=== PATIENT | female | born 1950 | race Hispanic/Latino ===

== ENCOUNTER 2020-07-14 09:21 | Day surgery (SDC) | payer OTHER ==
[2020-07-14 09:50] LABS: MPV 8.7 fL (7.6-11.3)
--- OUTSIDE RECORDS SUMMARY | 2020-07-14 09:52 | XMS REPORT ---
:1950 Author Organization eClinicalWorks Care Team Providers Name Role Phone Chaka [facility] Provider Role Unavailable Allergies No Known Allergies Problems Problem Type Condition Code Onset Dates Condition Statu s Assessment Chronic obstructive pulmonary J44.9 Active disease, unspecified COPD type Problem Exposure to tobacco smoke Z77.22 Ac tive Problem Generalized anxiety disorder F41.1 Active Problem Mixed hyperlipidemia E78.2 Active Problem Essential hypertension I10 Activ e Problem Current moderate episode of major F32.1 Active depressive disorder without prior episode Problem Non-seasonal allergic rhinitis, J30.89 Active unspecified trigger Problem Chronic obstructive pulmonary J44.9 Active disease, unspecified COPD type Problem Hypothyroidism, unspecified type E03.9 Active Medications Medication Code System Code Instructions Start End Date Status Dos age Date ProAir A [facility] [id number] 108 (90 Base) Active 2 p uffs as MCG/ACT needed Inhalation every 6 hrs PRN COugh, Wheezing or shortness of breath Results No Known Results Summary Purpose eClinicalWorks Submission
--- OUTSIDE RECORDS SUMMARY | 2020-07-14 09:52 | XMS REPORT ---
:1950 Author Organization eClinicalWorks Care Team Providers Name Role Phone Chaka Zaid Provider Role Unavailable Allergies, Adverse Reactions, Alerts Substance Reaction Event Type N.K.D.A. Info Not Available Non Drug Allergy Problems Problem Type Condition Code Onset Dates Condition Statu s Assessment Current moderate episode of major F32.1 Active depressive disorder without prior episode Problem Exposure to tobacco smoke Z77.22 Ac tive Problem Generalized anxiety disorder F41.1 Active Problem Mixed hyperlipidemia E78.2 Active Problem Essential hypertension I10 Activ e Problem Current moderate episode of major F32.1 Active depressive disorder without prior episode Problem Non-seasonal allergic rhinitis, J30.89 Active unspecified trigger Problem Chronic obstructive pulmonary J44.9 Active disease, unspecified COPD type Problem Hypothyroidism, unspecified type E03.9 Active Assessment Prediabetes R73.03 Active Assessment Hypothyroidism, unspecified type E03.9 Active Assessment Mixed hyperlipidemia E78.2 Active Assessment Former tobacco use Z87.891 Active Assessment Essential hypertension I10 Activ e Assessment Chronic obstructive pulmonary J44.9 Active disease, unspecified COPD type Assessment Generalized anxiety disorder F41.1 Active Medications Medication Code Code Instructions Start End Status Dosage System Date Date Sertraline HCl [facility] [id number] 100 MG Oral Active T BISI 1 Once a day TABLET BY MOUTH EVERYDAY AT BEDTIME Hydrochlorothiazide ND 17565246582 12.5 MG Orally A ctive 1 tablet Once a day in the morning Fluticasone ND 70893539423 50 MCG/ACT Active 1 spr ay in Propionate Nasally Once a each day nostril ProAir HFA [facility] [id number] 108 (90 Base) Active 2 p uffs as MCG/ACT needed Inhalation every 6 hrs PRN COugh, Wheezing or shortness of breath Simvastatin ND 62855076151 40 MG Orally Active 1 t ablet Once a day in the evening Levothyroxine Sodium ND 89792916010 88 MCG Orally A ctive 1 tablet Once a day in the morning on an empty stomach Levothyroxine Sodium ND 07065935941 100 MCG Active TAKE 1 TABLET IN THE MORNING ON AN EMPTY STOMACH ONCE A DAY ORALLY 30 DAYS 30 Anoro Ellipta [facility] [id number] 62.5mcg/25 mcg Active 1 puff Orally Once a day BuPROPion HCl ER (XL) [facility] 81612800646 150 MG Orally Active 1 tablet Once a day in the evening Hydrochlorothiazide [facility] 54637838408 12.5 MG Active TAKE 1 TABLET BY MOUTH EVERY DAY IN THE MORNING Results No Known Results Summary Purpose eClinicalWorks Submission
--- OUTSIDE RECORDS SUMMARY | 2020-07-14 09:52 | XMS REPORT | Continuity of Care Document ---
:1950 Author Organization [facility] t Address [address] [place] [address] Care Team Providers Name Role Phone Unavailable Unavailable Unavailable Problems Condition Condition Condition Status Onset Resolution Last Treating Co mments Source Name Details Category Date Date Treatment Clinician Date Hypothyroi Hypothyroi Problem Active [facility] dism 05-19 da 00:00: Medical 00 Group Hyperchole Hyperchole Problem Active [facility] sterolemia sterolemia 05-19 da 00:00: Medical Group Hypertensi Hypertensi Problem Active [facility] ve ve 05-19 da disorder Disorder 00:00: Medica l 00 Group Seasonal Seasonal Problem Active [place] allergic Allergic 05-19 da rhinitis Rhinitis 00:00: Medica l 00 Group Current Current Problem Active [facility] episode of episode of Me moria major major l depressive depressive Ou tpati disorder disorder ent without without Clinics prior prior episode episode Exposure Exposure Problem [facility] tobacco to tobacco [facility] - smoke smoke [facility] Clinics Generalize Generalize Diagnosis Active [facility] d anxiety d anxiety [facility] - disorder disorder Mem[facility] a l Outpati ent Clinics Mixed Mixed Diagnosis Active [facility] hyperlipid hyperlipid [facility] - emia emia [facility] Essential Essential Diagnosis Active [facility] hypertensi hypertensi [facility] - on on [facility] ent Clinics Non-season Non-season Problem Active [facility] al al [facility] - allergic allergic Memori a rhinitis, rhinitis, l unspecifie unspecifie Ou tpati d trigger d trigger ent Clinics Chronic Chronic Diagnosis [facility] obstructiv obstructiv [facility] - e e Memoria pulmonary pulmonary l disease, disease, Outpat i unspecifie unspecifie en t d COPD d COPD Clinics type type Hypothyroi Hypothyroi Diagnosis Active [facility] dism, dism, [facility] - unspecifie unspecifie Me moria d type d type l [facility] ent [facility] Prediabete Prediabete Diagnosis Active [facility] Former Former Diagnosis Active [facility] tobacco tobacco [facility] - use use [facility] Allergies, Adverse Reactions, Alerts This patient has no known allergies or adverse reactions. Social History Smoking Status Start Date Stop Date Source Former Smoker [facility] Medications Ordered Filled Start Stop Current Ordering Indication Dosage Frequency Signature Comments Components Source Medication Medication Date Date Medication? Clinician (SIG) Name Name ProAir HFA ProAir HFA Yes Zaid [address] [facility] Null needed [facility] ent [facility] Sertraline Sertraline Yes Zaid TAKE [address] [facility] HCl HCl Null TABLET BY [facility] - MOUTH [facility] EVERYDAY l AT BEDTIME [facility] ent Clinics Hydrochloro Hydrochloro Yes Zaid TAKE [address] [facility] thiazide thiazide Null TABLET BY L ukes - MOUTH [facility] EVERY DAY l IN THE [facility] MORN[facility] ent Clinics Fluticasone Fluticasone Yes Zaid [address] [facility] Propionate Propionate Null each [facility] - nostril [facility] ent Clinics Simvastatin Simvastatin Yes Zaid [address] [facility] Null in the [facility] - evening [facility] ent Clinics Levothyroxi Levothyroxi Yes Zaid [address] [facility] ne Sodium ne Sodium Null in the [facility] - morning on Memoria an empty l stomach [facility] ent Clinics Levothyroxi Levothyroxi Yes Zaid TAKE [address] [facility] ne Sodium ne Sodium Null TABLET IN [facility] - THE [facility] MORNING ON l AN EMPTY [facility] STOMACH ent ONCE A DAY Clinics ORALLY 30 DAYS 30 Anoro Anoro Yes Zaid [address] [facility] Ellipta Ellipta Null [facility] - [facility] ent Clinics BuPROPion BuPROPion Yes Zaid [address] [facility] HCl ER (XL) HCl ER (XL) Null in the [facility] - evening [facility] ent Clinics Anoro Anoro No Anoro [place] Ellipta Ellipta Ellipta da 62.5 mcg-25 62.5 mcg-25 62.5 M edical mcg/actuati mcg/actuati mcg-25 Group on powder on powder mcg/actuat for for ion powder inhalation inhalation for inhalation Aspir-81 Aspir-81 No Aspir-81 [facility] fluticasone fluticasone No fluticason [place] propionate propionate e da 50 50 propionate Medical mcg/actuati mcg/actuati 50 G roup on nasal on nasal mcg/actuat spray,suspe spray,suspe ion nasal nsion [place] nsion [place] spray,susp 1 spray 1 spray ension every day every day [place] 1 by by spray intranasal intranasal every day route. route. by intranasal route. hydrochloro hydrochloro No hydrochlor [place] thiazide thiazide othiazide da 12.5 mg 12.5 mg 12.5 mg Medica l tablet tablet tablet Group levothyroxi levothyroxi No levothyrox [place] ne 112 mcg ne 112 mcg ine 112 da tablet Take tablet Take mcg tablet Medical 1 tablet 1 tablet Take 1 Group every day every day tablet by oral by oral every day route. route. by oral route. prednisone prednisone No prednisone [place] 10 mg 10 mg 10 mg da tablet tablet tablet Medical Group sertraline sertraline No 1 Q1D sertraline [place] 100 mg 100 mg 100 mg da tablet Take tablet Take tablet Medical 1 tablet 1 tablet Take 1 Group every day every day tablet by oral by oral every day route at route at by oral bedtime for bedtime for route at 30 days. 30 days. bedtime for 30 days. sertraline sertraline No sertraline [place] 50 mg 50 mg 50 mg da tablet Take tablet Take tablet Medical 1 tablet 1 tablet Take 1 Group every day every day tablet by oral by oral every day route for route for by oral 30 days. 30 days. route for 30 days. simvastatin simvastatin No simvastati [place] 40 mg 40 mg n 40 mg da tablet Take tablet Take tablet Medical 1 tablet 1 tablet Take 1 Group every day every day tablet by oral by oral every day route. route. by oral route. Vital Signs Vital Name Observation Time Observation Value Comments Source BP Diastolic 2019-07-01 00:00:00 78 mm[Hg] [facility] Height 2019-07-01 00:00:00 60 [in_i] [facility] BMI (Body Mass 2019-07-01 00:00:00 29.7 kg/m2 [facility] Index) Group BP Systolic 2019-07-01 00:00:00 125 mm[Hg] [facility] Body Weight 2019-07-01 00:00:00 2432 [oz_av] [facility] BP Diastolic 2019-06-03 00:00:00 84 mm[Hg] [facility] Height 2019-06-03 00:00:00 60 [in_i] [facility] BMI (Body Mass 2019-06-03 00:00:00 30.3 kg/m2 [facility] Medical Index) Group BP Systolic 2019-06-03 00:00:00 136 mm[Hg] [facility] Body Weight 2019-06-03 00:00:00 2486 [oz_av] [facility] BP Diastolic 2019-04-06 00:00:00 75 mm[Hg] [facility] Height 2019-04-06 00:00:00 58.2 [in_i] [facility] BMI (Body Mass 2019-04-06 00:00:00 32.2 kg/m2 [facility] Medical Index) Group BP Systolic 2019-04-06 00:00:00 114 mm[Hg] [facility] Body Weight 2019-04-06 00:00:00 2484 [oz_av] [facility] Procedures Procedure Date / Time Performed Performing Clinician [facility] US, abdominal wall 2019-06-03 00:00:00 [facility] Encounters Start End Encounter Admission Attending Care Care Encounter Source Date/Time Date/Time Type Type Clinicians Facility Department ID 2020-07-06 2020-07-06 [facility] [id number] [facility] 09:45:00 09:45:00 [facility] l Medicine Outpati ent Clinics 2020-05-16 2020-05-16 [facility] [id number] [facility] 09:44:00 09:44:00 [facility] l Medicine Outpati ent Clinics 2020-04-10 2020-04-10 [facility] [id number] [facility] 11[facility]54:00 11:54:00 [facility] Family [facility] l Medicine Outpati ent Clinics 2020-04-05 2020-04-05 [facility] [id number] 09:00:00 09:00:00 [facility] [employer] [facility] [facility] Medicine Outpati ent Clinics 2020-04-05 2020-04-05 [facility] [id number] 09:00:00 09:00:00 t [employer] - [employer] [facility] Medicine Outpati ent Clinics 2020-03-16 2020-03-16 [facility] [id number] 16:18:00 16:18:00 t [employer] [facility] [employer] [facility] Medicine Outpati ent Clinics 2020-03-08 2020-03-08 [facility] [id number] [facility] 13:27:00 13:27:00 t [employer] - [employer] [facility] Medicine Outpati ent Clinics 2020-03-06 2020-03-06 [facility] [id number] [facility] 08:15:00 08:15:00 t [employer] [facility] Medicine Outpati ent Clinics 2020-01-12 2020-01-12 [facility] [id number] 15:30:00 15:30:00 t [employer] [facility] Medicine Outpati ent Clinics 2019-07-01 2019-07-01 [place] - [id number] [place] 00:00:00 00:00:00 Madelyn Marie MD: [address], [facility] [address], [place] [address] , Ph. 2019-06-03 2019-06-03 [facility] [place] - [id number] [place] 00:00:00 00:00:00 Madelyn Marie MD: [address], [facility] [address], [place] [address] , Ph. 2019-04-06 2019-04-06 [place] - [id number] [place] 00:00:00 00:00:00 Mazin Greenwood, Medical Medical MD: [address], Family [address], [place] [address] , Ph. Results Test Description Test Time Test Comments Results Result Comments Source Microalbumin [Mass/volume] in Urine 2019-04-07 05:57:00 Test Item Value Reference Range Interpretation Comme nts microalbumin random (test code = microalbumin random) 15.9 mg/L 0-20 [facility] Auto Differential panel - [id number] 05:57:00 Test Item Value Reference Range Interpretation Comments white blood count (test code = 6.1 K/uL 4.0-11.5 white blood count) red blood count (test code = red 4.73 M/uL 3.80-5.20 blood count) Hemoglobin [Mass/volume] in Blood 15.6 g/dL 10.5-15.7 (test code = 718-7) hematocrit (test code = hematocrit) 45.6 % 34.0-50.0 Erythrocyte mean corpuscular volume 96.4 fL 78-98 [Entitic volume] (test code = 19771-3) Erythrocyte mean corpuscular 33.1 pg 26.2-33.4 hemoglobin [Entitic mass] (test code = 93808-7) mean corpuscular HGB conc (test 34.3 g/dL 31.5-36.2 code = mean corpuscular HGB conc) red cell distribution width (test 11.0 % 11.5-15.5 L code = red cell distribution width) Platelets [#/volume] in Blood (test 198 K/uL 137-338 code = 01548-7) Platelet mean volume [Entitic 7.3 fL 8.4-11.8 L volume] in Blood (test code = 84338-3) Neutrophils.band form/100 55.2 % 44.4-80.1 leukocytes in Blood (test code = 02798-9) Lymphocytes/100 leukocytes in Body 34.5 % 10.0-50.0 fluid (test code = 27101-9) Monocytes/100 leukocytes in Blood 6.1 % 3.6-12.04 by Automated count (test code = 5905-5) Eosinophils/100 leukocytes in Blood 3.1 % 0.0-5.41 by Automated count (test code = 713-8) Basophils/100 leukocytes in 1.1 % 0.0-0.79 H Unspecified specimen (test code = 46943-9) [facility], [id number] 05:57:00 NeutrophilsBandLymphocyteMonocytePlatelet EstimateDifferential comment-P [facility] CenterHemoglobin A1c [Mass/volume] in [id number] 05:57:00 Test Item Value Reference Range Interpretation Comments Hemoglobin A1c in Blood (test code = 5.8 % 4.0-6.0 61532-2) [facility] 2000 panel - Serum or Plasma 2019-04-07 05:57:00 Test Item Value Reference Range Interpretation Comments glucose (test code = glucose) 122 mg/dL 82-115 H Urea nitrogen [Mass/volume] in 15 mg/dL 8-23 Serum or Plasma (test code = 3094-0) Osmolality of Serum or Plasma 283 280-300 (test code = 2692-2) creatinine (test code = 0.9 mg/dL 0.50-0.90 creatinine) glomerular filtration rate (test >60.00 code = glomerular filtration rate) Urea nitrogen/Creatinine [Mass 16.7 12-20 Ratio] in Serum or Plasma (test code = 3097-3) sodium level (test code = sodium 141 mmol/L 135-145 level) Potassium [Moles/volume] in Body 4.1 mmol/L 3.5-5.2 fluid (test code = 2821-7) chloride level (test code = 102 mmol/L 98-108 chloride level) CO2 (test code = CO2) 27 mmol/L 21-32 anion gap (test code = anion gap) 16.1 mEq/L 12-20 calcium level (test code = calcium 9.6 mg/dL 8.8-10.2 level) total protein (test code = total 7.6 g/dL 6.6-8.7 protein) albumin (test code = albumin) 4.2 g/dL 3.5-5.2 globulin (test code = globulin) 3.4 gm/dL A/G ratio (test code = A/G ratio) 1.2 >1.0 bilirubin,total (test code = 0.5 mg/dL 0.0-1.2 bilirubin,total) AST/SGOT (test code = AST/SGOT) 27 U/L 15-32 Alanine aminotransferase 18 U/L 0-33 [Enzymatic activity/volume] in Serum or Plasma (test code = 1742-6) Alkaline phosphatase [Enzymatic 105 U/L 35-105 activity/volume] in Serum or Plasma (test code = 6768-6) [facility] Center[facility] 1996 panel - Serum or [id number] 05:57:00 Test Item Value Reference Range Interpretation Comments cholesterol level (test code = 139 mg/dL 150-200 L cholesterol level) triglycerides level (test code = 96 mg/dL <150 triglycerides level) HDL cholesterol (test code = HDL 40 mg/dL >65 L cholesterol) LDL cholesterol direct (test code = 87 mg/dL <100 LDL cholesterol direct) cholesterol risk ratio (test code = 3.475 cholesterol risk ratio) [facility] CenterThyrotropin [Units/volume] in Serum or [id number] 05:57:00 Test Item Value Reference Range Interpretation Comments Thyrotropin [Units/volume] in 0.80 uIU/mL 0.36-3.74 Serum or Plasma (test code = 3016-3) [facility]
--- OUTSIDE RECORDS SUMMARY | 2020-07-14 09:53 | XMS REPORT ---
:1950 Author Organization eClinicalWorks Care Team Providers Name Role Phone [facility] Provider Role Unavailable Allergies No Known Allergies [...] Date Status Dos age Date ProAir A [facility] [id number] 108 (90 Base) Active 2 p uffs as MCG/ACT needed Inhalation every 6 hrs PRN COugh, Wheezing or shortness of breath Results No Known Results Summary Purpose eClinicalWorks Submission
--- OUTSIDE RECORDS SUMMARY | 2020-07-14 09:53 | XMS REPORT | Continuity of Care Document ---
:1950 Author Organization [facility] t Address [address] [place] [address] Care Team Providers Name Role Phone Unavailable [...] [facility] t to tobacco to tobacco Ilsy kes - smoke smoke Memoria l Outpati [...] Me moria d type d type l [facility] Prediabete Prediabete Diagnosis Active [facility] Former Former Diagnosis Active [facility] tobacco tobacco [facility] Allergies, Adverse Reactions, Alerts This patient has no known allergies or adverse reactions. Social History Smoking Status Start Date Stop Date Source Former Smoker [facility] Medications Ordered Filled Start Stop Current Ordering Indication Dosage Frequency Signature Comments Components Source Medication Medication Date Date Medication? Clinician (SIG) Name Name ProAir HFA ProAir HFA Yes Zaid [address] [facility] Null needed [facility] Sertraline Sertraline Yes Zaid TAKE [address] [facility] HCl HCl Null TABLET BY [facility] - MOUTH [facility] EVERYDAY l AT BEDTIME [facility] Clinics Hydrochloro Hydrochloro Yes Zaid TAKE [address] [facility] [address] thiazide thiazide Null TABLET BY L ukes - MOUTH [facility] EVERY DAY l [facility] Clinics Fluticasone Fluticasone Yes Zaid [address] [facility] [address] Propionate Propionate Null each Lisy kes - nostril [facility] ent Clinics Simvastatin Simvastatin Yes Zaid [address] [address] Null in the [facility] - evening [facility] ent Clinics Levothyroxi Levothyroxi Yes Zaid [address] ne Sodium ne Sodium Null in the Lisy kes - morning on Memoria an empty l stomach [facility] ent Clinics Levothyroxi Levothyroxi Yes Zaid TAKE [address] [facility] ne Sodium ne Sodium Null TABLET IN [facility] - THE [facility] MORNING ON l AN EMPTY [facility] ST[facility]ACH ent ONCE A DAY Clinics ORALLY 30 DAYS 30 Anoro Anoro Yes Zaid [address] [address] Ellipta Ellipta Null [facility] - [facility] ent Clinics BuPROPion BuPROPion Yes Zaid [address] HCl ER (XL) HCl ER (XL) Null in the [facility] - evening [facility] ent Clinics Anoro Anoro No Anoro [...] nasal mcg/actuat spray,suspe spray,suspe ion nasal nsion [place] nsion [place] spray,susp 1 spray 1 spray ension every day every day [place] 1 by by spray intranasal intranasal every [...] Source BP Diastolic 2019-07-01 00:00:00 78 mm[Hg] [facility] Height 2019-07-01 00:00:00 60 [in_i] [facility] BMI (Body Mass 2019-07-01 00:00:00 29.7 kg/m2 [facility] Group BP Systolic 2019-07-01 00:00:00 125 mm[Hg] [facility] Body Weight 2019-07-01 00:00:00 2432 [oz_av] [facility] BP Diastolic 2019-06-03 00:00:00 84 mm[Hg] [facility] Height 2019-06-03 00:00:00 60 [in_i] [facility] BMI (Body Mass 2019-06-03 00:00:00 30.3 kg/m2 [facility] Index) Group BP Systolic 2019-06-03 00:00:00 136 mm[Hg] [facility] Body Weight 2019-06-03 00:00:00 2486 [oz_av] [facility] BP Diastolic 2019-04-06 00:00:00 75 mm[Hg] [facility] Height 2019-04-06 00:00:00 58.2 [in_i] [facility] BMI (Body Mass 2019-04-06 00:00:00 32.2 kg/m2 [facility]) Group BP Systolic 2019-04-06 00:00:00 114 mm[Hg] [facility] Body Weight 2019-04-06 00:00:00 2484 [oz_av] [facility] Procedures Procedure Date / Time Performed Performing Clinician [facility] e US, abdominal wall 2019-06-03 00:00:00 [facility] Encounters Start End Encounter Admission Attending Care Care Encounter Source Date/Time Date/Time Type Type Clinicians Facility Department ID 2020-07-06 2020-07-06 [facility] [id number] [facility] 09[facility]00 09:45:00 [facility] Family Medicine l Medicine Outpati ent Clinics 2020-05-16 2020-05-16 [facility] [id number] 09:44:00 09:44:00 [facility] Family Medicine l Medicine Outpati ent Clinics 2020-04-10 2020-04-10 [facility] [id number] [address] 11:54:00 11:54:00 [facility] Family Medicine l Medicine Outpati ent Clinics 2020-04-05 2020-04-05 [facility] [id number] 09:[facility]:00 09:00:00 t Medical [place] - [facility] Medicine Outpati ent Clinics 2020-04-05 2020-04-05 [facility] [id number] 09:00:00 09:00:00 t [place] s - [facility] Medicine Outpati ent Clinics 2020-03-16 2020-03-16 [facility] [id number] 16:18:00 16:18:00 t Medical [place] s - [facility] Medicine Outpati ent Clinics 2020-03-08 2020-03-08 [facility] [id number] 13:27:00 13:27:00 t [place] s - [facility] Medicine Outpati ent Clinics 2020-03-06 2020-03-06 [facility] [id number] 08:15:00 08:15:00 t [place] Pain Doctor [facility] Medicine Outpati ent Clinics 2020-01-12 2020-01-12 [facility] [id number] 15:30:00 15:30:[address] [facility] Medicine Outpati ent Clinics 2019-07-01 2019-07-01 [place] - [id number] [place] 00:00:00 00:00:00 Madelyn Marie MD: [address] [facility], [facility] [address], [place] [address] , Ph. 2019-06-03 2019-06-03 [facility] [place] - [id number] [place] 00:00:00 00:00:00 Mdaelyn Marie MD: [address] [facility], [facility] [address], [place] [address] , Ph. 2019-04-06 2019-04-06 [place] - [id number] [place] 00:00:00 00:00:00 Mazin Greenwood, Medical Medical MD: [address] [facility], Family [address], [place] [address] , Ph. Results Test Description Test Time Test Comments Results Result Comments Source Microalbumin [Mass/volume] in Urine 2019-04-07 05:57:00 Test Item Value Reference Range Interpretation Comme nts microalbumin random (test code = microalbumin random) 15.9 mg/L 0-20 [facility] Differential panel - [id number] 05:57:00 Test Item Value Reference Range Interpretation Comments white blood count (test code = 6.1 K/uL 4.0-11.5 white blood count) red blood count (test code = red 4.73 M/uL 3.80-5.20 blood count) Hemoglobin [Mass/volume] in Blood 15.6 g/dL 10.5-15.7 (test code = 718-7) hematocrit (test code = hematocrit) 45.6 % 34.0-50.0 Erythrocyte mean corpuscular volume 96.4 fL 78-98 [Entitic volume] (test code = 19535-5) Erythrocyte mean corpuscular 33.1 pg 26.2-33.4 hemoglobin [Entitic mass] (test code = 99685-0) mean corpuscular HGB conc (test 34.3 g/dL 31.5-36.2 code = mean corpuscular HGB conc) red cell distribution width (test 11.0 % 11.5-15.5 L code = red cell distribution width) Platelets [#/volume] in Blood (test 198 K/uL 137-338 code = 89389-1) Platelet mean volume [Entitic 7.3 fL 8.4-11.8 L volume] in Blood (test code = 50697-5) Neutrophils.band form/100 55.2 % 44.4-80.1 leukocytes in Blood (test code = 82221-2) Lymphocytes/100 leukocytes in Body 34.5 % 10.0-50.0 fluid (test code = 08579-3) Monocytes/100 leukocytes in Blood 6.1 % 3.6-12.04 by Automated count (test code = 5905-5) Eosinophils/100 leukocytes in Blood 3.1 % 0.0-5.41 by Automated count (test code = 713-8) Basophils/100 leukocytes in 1.1 % 0.0-0.79 H Unspecified specimen (test code = 83274-3) [facility] [id number] 05:57:00 NeutrophilsBandLymphocyteMonocytePlatelet EstimateDifferential comment-P [facility] CenterHemoglobin A1c [Mass/volume] in [id number] 05:57:00 Test Item Value Reference Range Interpretation Comments Hemoglobin A1c in Blood (test code = 5.8 % 4.0-6.0 76067-0) [facility] 2000 panel - Serum or [...] Serum or Plasma (test code = 6768-6) [facility] 1996 panel - Serum or [id number] 05:57:00 Test Item Value Reference Range Interpretation Comments cholesterol level (test code = 139 mg/dL 150-200 L cholesterol level) triglycerides level (test code = 96 mg/dL <150 triglycerides level) HDL cholesterol (test code = HDL 40 mg/dL >65 L cholesterol) LDL cholesterol direct (test code = 87 mg/dL <100 LDL cholesterol direct) cholesterol risk ratio (test code = 3.475 cholesterol risk ratio) [facility] CenterThyrotropin [Units/volume] in Serum or [id number] 05:57:00 Test Item Value Reference Range Interpretation Comments Thyrotropin [Units/volume] in 0.80 uIU/mL 0.36-3.74 Serum or Plasma (test code = 3016-3) [facility]
--- OUTSIDE RECORDS SUMMARY | 2020-07-14 09:53 | XMS REPORT ---
[...] Status Dosage System Date Date Sertraline HCl [facility] 15909309264 100 MG Oral Active T BISI 1 Once a day TABLET BY MOUTH EVERYDAY AT BEDTIME Hydrochlorothiazide ND 38928371066 12.5 MG Orally A ctive 1 tablet Once a day in the morning Fluticasone ND 62836486462 50 MCG/ACT Active 1 spr ay in Propionate Nasally Once a each day nostril ProAir HFA [facility] 54839981000 108 (90 Base) Active 2 p uffs as MCG/ACT needed Inhalation every 6 hrs PRN COugh, Wheezing or shortness of breath Simvastatin ND 19045324077 40 MG Orally Active 1 t ablet Once a day in the evening Levothyroxine Sodium ND 31235046116 88 MCG Orally A ctive 1 tablet Once a day in the morning on an empty stomach Levothyroxine Sodium ND 76335929549 100 MCG Active TAKE 1 TABLET IN THE MORNING ON AN EMPTY STOMACH ONCE A DAY ORALLY 30 DAYS 30 Anoro Ellipta [facility] 95727443520 62.5mcg/25 mcg Active 1 puff Orally Once a day BuPROPion HCl ER (XL) [facility] 73762152396 150 MG Orally Active 1 tablet Once a day in the evening Hydrochlorothiazide [facility] 02468091417 12.5 MG Active TAKE 1 TABLET BY MOUTH EVERY DAY IN THE MORNING Results No Known Results Summary Purpose eClinicalWorks Submission
[2020-07-14 09:56] LABS: Protime INR 1.05
--- OUTSIDE RECORDS SUMMARY | 2020-07-14 09:56 | XMS REPORT ---
:1950 Author Organization [employer] Care Team Providers Name Role Phone Chaka [facility] Provider Role Unavailable Allergies No Known Allergies [...] Date Status Dos age Date ProAir A [facility] 64159056391 108 (90 Base) Active 2 p uffs as MCG/ACT needed Inhalation every 6 hrs PRN COugh, Wheezing or shortness of breath Results No Known Results Summary Purpose eClinicalWorks Submission
--- OUTSIDE RECORDS SUMMARY | 2020-07-14 09:56 | XMS REPORT ---
[...] Status Dosage System Date Date Sertraline HCl [facility] 33367485255 100 MG Oral Active T BISI 1 Once a day TABLET BY MOUTH EVERYDAY AT BEDTIME Hydrochlorothiazide ND 86453752684 12.5 MG Orally A ctive 1 tablet Once a day in the morning Fluticasone ND 81894208039 50 MCG/ACT Active 1 spr ay in Propionate Nasally Once a each day nostril ProAir HFA [facility] 10602336610 108 (90 Base) Active 2 p uffs as MCG/ACT needed Inhalation every 6 hrs PRN COugh, Wheezing or shortness of breath Simvastatin ND 85777154883 40 MG Orally Active 1 t ablet Once a day in the evening Levothyroxine Sodium ND 69897171814 88 MCG Orally A ctive 1 tablet Once a day in the morning on an empty stomach Levothyroxine Sodium ND 56541458863 100 MCG Active TAKE 1 TABLET IN THE MORNING ON AN EMPTY STOMACH ONCE A DAY ORALLY 30 DAYS [address] [facility] 55717339996 62.5mcg/25 mcg Active 1 puff Orally Once a day BuPROPion HCl ER (XL) [facility] 18069717121 150 MG Orally Active 1 tablet Once a day in the evening Hydrochlorothiazide [facility] 90720351852 12.5 MG Active TAKE 1 TABLET BY MOUTH EVERY DAY IN THE MORNING Results No Known Results Summary Purpose eClinicalWorks Submission
--- OUTSIDE RECORDS SUMMARY | 2020-07-14 09:56 | XMS REPORT | Continuity of Care Document ---
:1950 Author Organization [facility] t Address [address] [place] [address] Care Team Providers Name Role Phone Unavailable [...] Me moria d type d type l [facility] ent [facility] Prediabete Prediabete Diagnosis Active [facility] Former Former Diagnosis Active [facility] tobacco tobacco [facility] Allergies, Adverse Reactions, Alerts This patient has no known allergies or adverse reactions. Social History Smoking Status Start Date Stop Date Source Former Smoker [facility] Medications Ordered Filled Start Stop Current Ordering Indication Dosage Frequency Signature Comments Components Source Medication Medication Date Date Medication? Clinician (SIG) Name Name ProAir HFA ProAir HFA Yes Zaid [address] Null needed [facility] Sertraline Sertraline Yes Zaid TAKE [address] [facility] HCl HCl Null TABLET BY Lukes - MOUTH [facility] EVERYDAY l AT BEDTIME [facility] ent Clinics Hydrochloro Hydrochloro Yes Zaid TAKE [address] thiazide thiazide Null TABLET BY L ukes - MOUTH [facility] EVERY DAY l IN THE [facility] Clinics Fluticasone Fluticasone Yes Zaid [address] Propionate Propionate Null each Lisy kes - nostril [facility] ent Clinics Simvastatin Simvastatin Yes Zaid [address] [facility] ent Clinics Levothyroxi Levothyroxi Yes Zaid [address] ne Sodium ne Sodium Null in the Lisy kes - morning on Memoria an empty l stomach [facility] ent Clinics Levothyroxi Levothyroxi Yes Zaid TAKE [address] [facility] ne Sodium ne Sodium Null TABLET IN [facility] - THE [facility] MORNING ON l AN EMPTY [facility] ST[facility]ACH ent ONCE A DAY Clinics ORALLY 30 DAYS 30 Anoro Anoro Yes Zaid [address] Ellipta Ellipta Null [facility] - [facility] ent Clinics BuPROPion BuPROPion Yes Zaid [address] HCl ER (XL) HCl ER (XL) Null in the [facility] - evening [facility] ent Clinics Anoro Anoro No Anoro [place] [...] nasal mcg/actuat spray,suspe spray,suspe ion nasal nsion [place] nsion [place] spray,susp 1 spray 1 spray ension every day every day [place] 1 by by spray intranasal intranasal every [...] Source BP Diastolic 2019-07-01 00:00:00 78 mm[Hg] [facility] Height 2019-07-01 00:00:00 60 [in_i] [facility] BMI (Body Mass 2019-07-01 00:00:00 29.7 kg/m2 [facility] Medical Index) Group BP Systolic 2019-07-01 00:00:00 125 mm[Hg] [facility] Body Weight 2019-07-01 00:00:00 2432 [oz_av] [facility] BP Diastolic 2019-06-03 00:00:00 84 mm[Hg] [facility] Height 2019-06-03 00:00:00 60 [in_i] [facility] BMI (Body Mass 2019-06-03 00:00:00 30.3 kg/m2 [facility] Medical Index) Group BP Systolic 2019-06-03 00:00:00 136 mm[Hg] [facility] Body Weight 2019-06-03 00:00:00 2486 [oz_av] [facility] BP Diastolic 2019-04-06 00:00:00 75 mm[Hg] [facility] Height 2019-04-06 00:00:00 58.2 [in_i] [facility] BMI (Body Mass 2019-04-06 00:00:00 32.2 kg/m2 [facility] Medical Index) Group BP Systolic 2019-04-06 00:00:00 114 mm[Hg] [facility] Body Weight 2019-04-06 00:00:00 2484 [oz_av] [facility] Procedures Procedure Date / Time Performed Performing Clinician [facility] e US, abdominal wall 2019-06-03 00:00:00 [facility] Encounters Start End Encounter Admission Attending Care Care Encounter Source Date/Time Date/Time Type Type Clinicians Facility Department ID 2020-07-06 2020-07-06 [facility] [id number] 09:45:00 09:45:00 [employer] [facility] Family Medicine l Medicine Outpati ent Clinics 2020-05-16 2020-05-16 [facility] [id number] 09:44:00 09:44:00 [employer] [facility] Family Medicine l Medicine Outpati ent Clinics 2020-04-10 2020-04-10 [facility] [id number] 11:54:00 11:54:00 [facility] [employer] [facility] Family Medicine l Medicine Outpati ent Clinics 2020-04-05 2020-04-05 [facility] [id number] 09:00:00 09:00:00 t [place] [employer] s - [id number] [facility] Medicine Outpati ent Clinics 2020-04-05 2020-04-05 [facility] [id number] 09:00:00 09:00:00 t [place] [facility] - [id number] [facility] Medicine Outpati ent Clinics 2020-03-16 2020-03-16 [facility] [id number] 16:18:00 16:18:00 t [place] [employer] s - [id number] [facility] Medicine Outpati ent Clinics 2020-03-08 2020-03-08 [facility] [id number] 13:27:00 13:27:00 t [place] s - [id number] [facility] Medicine Outpati ent Clinics 2020-03-06 2020-03-06 [facility] [id number] 08:15:00 08:15:00 t [place] [employer] [facility] Medicine Outpati ent Clinics 2020-01-12 2020-01-12 [facility] [id number] 15:30:00 15:30:00 t [employer] [facility] Medicine Outpati ent Clinics 2019-07-01 2019-07-01 [place] - [id number] [place] 00:00:00 00:00:00 Madelyn Marie MD: [address] [facility], [facility] [address], [place] [address] , Ph. 2019-06-03 2019-06-03 [place] [facility] [place] - [id number] [place] 00:00:00 00:00:00 Madelyn Marie MD: [address] [facility], [facility] [address], [place] [address] , Ph. 2019-04-06 2019-04-06 [place] - [id number] [place] 00:00:00 00:00:00 Mazin Greenwood, Medical Medical MD: [address] [facility], Family [address], [place] [address] , Ph. Results Test Description Test Time Test Comments Results Result Comments Source Microalbumin [Mass/volume] in Urine 2019-04-07 05:57:00 Test Item Value Reference Range Interpretation Comme nts microalbumin random (test code = microalbumin random) 15.9 mg/L 0-20 [facility] Differential panel - [id number] 05:57:00 Test Item Value Reference Range Interpretation Comments white blood count (test code = 6.1 K/uL 4.0-11.5 white blood count) red blood count (test code = red 4.73 M/uL 3.80-5.20 blood count) Hemoglobin [Mass/volume] in Blood 15.6 g/dL 10.5-15.7 (test code = 718-7) hematocrit (test code = hematocrit) 45.6 % 34.0-50.0 Erythrocyte mean corpuscular volume 96.4 fL 78-98 [Entitic volume] (test code = 82022-6) Erythrocyte mean corpuscular 33.1 pg 26.2-33.4 hemoglobin [Entitic mass] (test code = 64914-5) mean corpuscular HGB conc (test 34.3 g/dL 31.5-36.2 code = mean corpuscular HGB conc) red cell distribution width (test 11.0 % 11.5-15.5 L code = red cell distribution width) Platelets [#/volume] in Blood (test 198 K/uL 137-338 code = 95616-7) Platelet mean volume [Entitic 7.3 fL 8.4-11.8 L volume] in Blood (test code = 45333-2) Neutrophils.band form/100 55.2 % 44.4-80.1 leukocytes in Blood (test code = 93082-2) Lymphocytes/100 leukocytes in Body 34.5 % 10.0-50.0 fluid (test code = 84149-8) Monocytes/100 leukocytes in Blood 6.1 % 3.6-12.04 by Automated count (test code = 5905-5) Eosinophils/100 leukocytes in Blood 3.1 % 0.0-5.41 by Automated count (test code = 713-8) Basophils/100 leukocytes in 1.1 % 0.0-0.79 H Unspecified specimen (test code = 04478-8) [facility], [id number] 05:57:00 NeutrophilsBandLymphocyteMonocytePlatelet EstimateDifferential comment-P [facility] CountyHemoglobin A1c [Mass/volume] in [id number] 05:57:00 Test Item Value Reference Range Interpretation Comments Hemoglobin A1c in Blood (test code = 5.8 % 4.0-6.0 79769-6) [facility] 2000 panel - Serum or Plasma [...] Serum or Plasma (test code = 6768-6) [facility] 1996 panel - Serum or [id number] 05:57:00 Test Item Value Reference Range Interpretation Comments cholesterol level (test code = 139 mg/dL 150-200 L cholesterol level) triglycerides level (test code = 96 mg/dL <150 triglycerides level) HDL cholesterol (test code = HDL 40 mg/dL >65 L cholesterol) LDL cholesterol direct (test code = 87 mg/dL <100 LDL cholesterol direct) cholesterol risk ratio (test code = 3.475 cholesterol risk ratio) [facility] CountyThyrot[facility]in [Units/volume] in Serum or [id number] 05:57:00 Test Item Value Reference Range Interpretation Comments Thyrotropin [Units/volume] in 0.80 uIU/mL 0.36-3.74 Serum or Plasma (test code = 3016-3) [facility]
[2020-07-14 10:18] LABS: Platelet Estimate ADEQ
[2020-07-14 10:46] VITALS: BP 138/80; TEMP 98.8; O2SAT 98; BMI 28.3
--- NOTE | 2020-07-14 12:57 | RAD REPORT ---
EXAM DESCRIPTION: RAD - Lumbar Puncture For Dx - 07/14/2020 12:46 pm CLINICAL HISTORY: LATENT SYPHILIS COMPARISON: No comparisons TECHNIQUE: The procedure, risks and alternatives to the procedure were discussed with the patient in detail. After answering all questions, both oral and written consent were obtained. Time-out procedu re was performed. The patient was placed in an oblique prone position on the fluoroscopic table. The skin of the lower back was prepped and draped in the usual sterile fashion. After anesthetizing the skin and deeper sof t tissues with 1% lidocaine, multiple attempts were made to access the subarachnoid space. At least 3 different lumbar levels were attempted and a total of 5 attempts were made at various spots. Despite this, no CSF could be obtained. This may be related to low CSF pressure or stenosis elsewhere in the spine. Total fluoro time: 3.8 minutes Images obtained: 2 IMPRESSION: Unsuccessful fluoroscopic guided lumbar puncture as detailed. Dr. Bloom was notified.
== END 2020-07-14 13:10 | disposition home or self-care (01) ==
LOC: DS 09:21 → RAD 09:24 → EDSTATUS 11:00 → DS 13:10
PROVIDERS: ATTEND Psychiatry & Neurology Neurology with Special Qualifications in Child Neurology
PROC: 00JU3ZZ Inspection of Spinal Canal, Percutaneous Approach (ICD-10-PCS; principal; 2020-07-14)
DX: A53.0 Latent syphilis, unspecified as early or late (principal); F17.200 Nicotine dependence, unspecified, uncomplicated
CPT/HCPCS: 36415; 77003; 85049; 85610; 85730